=== PATIENT | male | born 1990 | race Caucasian/White ===

== ENCOUNTER 2016-08-22 05:34 | Emergency (ER) | payer OTHER ==
[2016-08-22 05:58] VITALS: BP 133/77
--- NOTE | 2016-08-22 06:10 | DR.GENAD ---
HPI - PCP Primary Care Physician: NFD - Complaint/Symptoms Chief Complaint Doctors Comments: Patient states he woke up sore, shaking with a sore throat and bones aching with stomach cramping this morning. states he had a similar problem a few weeks ago and went to see his doctor and he told him it was a virus but he could not tell him what kind of virus it was. States multiple family members has been sick recently and it seem to have gone through the whole family at one time or another. States his throat is sore all the time rather he is swallowing or not. He denies fever, chills, nausea, vomiting or diarrhea. States his son had strept throat last week. states the pain is 6 of 10. He is having cramping in his stomach but denies hematuria or farhan. States he has taken multiple medicines for pain before leaving home today. He denies cough or SOB. Chief Complaint:: PT C/O FLULIKE SYMPTOMS - Nurses notes reviewed Nurses Notes Review: Yes - Source History Provided: Patient - Mode of Arrival Mode of Arrival: Ambulatory - Timing Onset of Chief Complaint: 07/25/16 Came on: Gradually - Duration Duration: Constant How lon Duration: Days - Location Location: sore throat - Severity Severity: None - Modifying Factors Worsens:: nothing Improves:: nothing PMH - PMH Past Medical History: No Past Surgical History: No - Family History History of Family Medical Conditions: Yes Family Medical History: Cancer - Social History Alcohol Use: Occasionally Do you use any recreational Drugs:: No Lives With: Family Lives Where: Home - infectious screening In the last 2 months have you had wt loss of >10#?: NO Have you had fever, night sweats or hemotysis?: No Have you traveled outside the country in the last 6 months?: No Isolation: Standard ROS - Review of Systems Constitutional: No Symptoms Reported. negative: See HPI, Chills, Diaphoresis, Fever, Malaise, Weakness, Irritable, Fatigue, Loss of Appetite, Other Eyes: No Symptoms Reported ENTM: No Symptoms Reported, Nose Discharge, Nose Congestion, Throat Pain. negative: See HPI, Ear Pain, Ear Discharge, Pulling on Ears, Hearing Loss, Nose Pain, Epistaxis, Mouth Pain, Mouth Swelling, Loose Teeth, Drooling, Throat Swelling, Ear Foreign Body Respiratoy: No Symptoms Reported Cardiovascular: No Symptoms Reported. negative: See HPI, Chest Pain, Edema, Palpitations, Syncope, Cyanosis, Skin Mottling, Other Gastrointestinal/Abdominal: No Symptoms Reported, Abdominal Pain, Nausea. negative: See HPI, Constipation, Diarrhea, Vomiting, Food Intolerance, Other Genitourinary: No Symptoms Reported. negative: See HPI, Discharge, Dysuria, Frequency, Hematuria, Pain, Bleeding, Other Neurological: No Symptoms Reported Musculoskeletal: No Symptoms Reported Integumentary: No Symptoms Reported. negative: See HPI, Change in Color, Change in Hair/Nails, Dryness, Lesions, Lumps, Rash, Itching, Wound, Bruises, Juandice, Other Hematologic/Lymphatic: No Symptoms Reported. negative: See HPI, Anemia, Blood Clots, Easy Bleeding, Easy Bruising, Swollen Glands, Lymphadenopathy, Other Endocrine: No Symptoms Reported Psychiatric: No Symptoms Reported PE - Vital Signs Vitals: Temperature 98.6 F Pulse Rate 100 Respiratory Rate 18 Blood Pressure 133/77 O2 Sat by Pulse Oximetry 98 - General Limitations: No Limitations General Appearance: Alert, In Distress (mild) - Head Head Exam: Normal Inspection, Atraumatic, Normocephalic - Eyes Eye exam: Normal Appearance, PERRL, EOMI. negative: Scleral Icterus, Conjunctival Injection, Nystagmus, Miosis, Mydrasis, Periorbital Swelling, Periorbital Tenderness, Other - ENT ENT Exam: Normal Exam, Normal Oropharynx, Normal External Ear Exam, Mucous Membranes Moist, TM's Normal Bilaterally External Ear Exam: Normal External Inspection TM/Canal Exam: Bilateral Normal Nose Exam: Normal Nose Exam Mouth Exam: Normal Inspection. negative: Drooling, Trismus, Lip Swelling, Tongue Elevation, Tongue Swelling, Laceration, Other Throat Exam: Normal Inspection, Tonsillar Erythema, Tonsillomegaly. negative: Tonsillar Exudate, R Peritonsillar Mass, L Peritonsillar Mass, Muffled Voice, Other - Neck Neck Exam: Normal Inspection, Full ROM, Trachea Midline. negative: Tenderness, Meningismus, Lymphadenopathy, Thyromegaly, Other - Chest Chest Inspection: Normal Inspection, Symmetric Chest Wall Rise. negative: Tenderness, Rash, Abscess, Other - Respiratory Respiratory Exam: Normal Lung Sounds Bilat Respiratory Exam: Bilateral Clear to Auscultation - Cardiovascular Cardiovascular Exam: Regular Rate, Normal Rhythm, Normal Heart Sounds. negative : Bradycardia, Tachycardia, Irregular Rhythm, Systolic Murmur, Diastolic Murmur , Rubs, Gallop, Clicks, JVD, +S1, +S2, +S3, +S4, Other - Abdominal Exam Abdominal Exam: Normal Inspection, Normal Bowel Sounds, Soft. negative: Distention, Tenderness, Guarding, Rebound, Rigidity, Dimnished Bowel Sounds, Hyperactive Bowel Sounds, Hypoactive Bowel Sounds, Organomegaly, Trauma, Incision, Ascites, Mass, Bruit, Pulsatile Mass, Hernia, Other Abdominal Tenderness: negative: RUQ, RLQ, LUQ, LLQ, Epigastrium, Suprapubic, Diffuse, Mild, Moderate, Severe, Other - Extremities Extremities Exam: Normal Inspection, Full ROM, Normal Capillary Refill. negative: Tenderness, Edema, Joint Swelling, Calf Tenderness, Other - Back Back Exam: Normal Inspection, Full ROM. negative: Tenderness, (R) CVA Tenderness, (L) CVA Tenderness, Muscle Spasm, Paraspinal Tenderness, Vertebral Tenderness, Rashes, (R) Sciatic Notch Tenderness, (L) Sciatic Notch Tendern, (R ) Straight Leg Raise, (L) Straight Leg Raise, Other - Neurologic Neurological Exam: Alert, Oriented X3, CN II-XII Intact, Normal Gait, Reflexes Normal - Psychiatric Psychiatric Exam: Normal Affect, Normal Mood. negative: Depressed, Agitated, Anxious, Flat Affect, Manic, Homicidal Ideation, Suicidal Ideation, Other - Skin Skin Exam: Warm, Dry, Intact, Normal Color. negative: Rash, Cyanosis, Diaphoresis, Erythema, Pallor, Mottled, Other ROR - Labs Reviewed Laboratory Results Reviewed?: Yes (all lab results reviewed and discussed with patient) Result Diagrams: 08/22/16 06:18 08/22/16 06:18 Laboratory: WBC 14.7 X10^3/uL (3.6-10.0) H 08/22/16 06:18 RBC 5.21 X10^6/uL (4.7-6.0) 08/22/16 06:18 Hgb 15.5 g/dL (13.5-18.0) 08/22/16 06:18 Hct 44.2 % (42.0-54.0) 08/22/16 06:18 MCV 84.9 fL (80.0-100.0) 08/22/16 06:18 MCH 29.7 pg (27.0-34.0) 08/22/16 06:18 MCHC 35.0 g/dL (33.0-35.0) 08/22/16 06:18 RDW 12.4 % (11.6-16.5) 08/22/16 06:18 Plt Count 286 X10^3/uL (150.0-450.0) 08/22/16 06:18 MPV 7.2 fL (7.4-11.0) L 08/22/16 06:18 Neut % 85.1 % (42.0-75.0) H 08/22/16 06:18 Lymph % 6.5 % (21.0-51.0) L 08/22/16 06:18 [place] % 5.3 % (0.0-13.0) 08/22/16 06:18 Eos % 2.4 % (0.9-2.9) 08/22/16 06:18 Baso % 0.7 % (0.2-1.0) 08/22/16 06:18 Neut # 12.5 x10^3/uL (2.2-4.8) H 08/22/16 06:18 Lymph # 1.0 X10^3/uL (1.3-2.9) L 08/22/16 06:18 [place] # 0.8 x10^3/uL (0.3-0.8) 08/22/16 06:18 Eos # 0.4 x10^3/uL (0.0-0.2) H 08/22/16 06:18 Baso # 0.1 X10^3/uL (0.0-0.1) 08/22/16 06:18 Absolute Nucleated RBC 0.0 /100WBC 08/22/16 06:18 Sodium 139 mmol/L (136-145) 08/22/16 06:18 Corrected Sodium TNP 08/22/16 06:18 Potassium 4.1 mmol/L (3.5-5.1) 08/22/16 06:18 Chloride 103 mmol/L (98-107) 08/22/16 06:18 Carbon Dioxide 26.7 mmol/L (21-32) 08/22/16 06:18 BUN 19 mg/dL (7-18) H 08/22/16 06:18 Creatinine 1.13 mg/dL (0.70-1.30) 08/22/16 06:18 Est GFR (MDRD) Af Amer > 60 (>60) 08/22/16 06:18 Est GFR (MDRD) Non-Af > 60 (>60) 08/22/16 06:18 Glucose 103 mg/dL (65-99) H 08/22/16 06:18 Calcium 8.7 mg/dL (8.5-10.1) 08/22/16 06:18 Corrected Calcium TNP 08/22/16 06:18 Total Bilirubin 1.60 mg/dL (0.2-1.0) H 08/22/16 06:18 AST 17 Units/L (15-37) 08/22/16 06:18 ALT 23 Units/L (12-78) 08/22/16 06:18 Alkaline Phosphatase 52 Units/L (46-116) 08/22/16 06:18 Total Protein 7.6 g/dL (6.4-8.2) 08/22/16 06:18 Albumin 3.9 g/dL (3.4-5.0) 08/22/16 06:18 Globulin 3.7 g/dL (2.5-4.5) 08/22/16 06:18 Albumin/Globulin Ratio 1.1 Ratio (1.1-2.1) 08/22/16 06:18 Streptococcus Screen Positive (NEGATIVE) A 08/22/16 06:21 - Diagnosis Discharge Problem: Streptococcal pharyngitis, Sinusitis, acute - Discharge Plan Disposition: HOME, SELF-CARE Condition: Stable Prescriptions: Amoxicillin & Pot Clavulanate [AUGMENTIN TAB 875 mg/125 mg *] 1 tab PO BID #20 tab Cetirizine HCl [Zyrtec Tab 10 mg] 10 mg PO DAILY #30 tab - Follow ups/Referrals Follow ups/Referrals: NFD,None [Primary Care Provider] - 3 days - Instructions Instructions: Strep Throat, Pharyngitis, Sinusitis, Adult
[2016-08-22 06:25] LABS: BASOPHILS # (AUTO) 0.1 X10^3/uL (0.0-0.1); BASOPHILS % (AUTO) 0.7 % (0.2-1.0); EOSINOPHILS # (AUTO) 0.4 x10^3/uL (0.0-0.2); EOSINOPHILS % (AUTO) 2.4 % (0.9-2.9); HEMATOCRIT 44.2 % (42.0-54.0); HEMOGLOBIN 15.5 g/dL (13.5-18.0); LYMPHOCYTES % (AUTO) 6.5 % (21.0-51.0); MEAN CORPUSCULAR HEMOGLOBIN 29.7 pg (27.0-34.0); MEAN CORPUSCULAR VOLUME 84.9 fL (80.0-100.0); MEAN PLATELET VOLUME 7.2 fL (7.4-11.0); MONOCYTES # (AUTO) 0.8 x10^3/uL (0.3-0.8); MONOCYTES % (AUTO) 5.3 % (0.0-13.0); NEUTROPHILS # (AUTO) 12.5 x10^3/uL (2.2-4.8); NEUTROPHILS % (AUTO) 85.1 % (42.0-75.0); PLATELET COUNT 286 X10^3/uL (150.0-450.0); RED BLOOD COUNT 5.21 X10^6/uL (4.7-6.0); RED CELL DISTRIBUTION WIDTH 12.4 % (11.6-16.5); WHITE BLOOD COUNT 14.7 X10^3/uL (3.6-10.0)
[2016-08-22 06:41] LABS: ALANINE AMINOTRANSFERASE 23 Units/L (12-78); ALBUMIN 3.9 g/dL (3.4-5.0); ALKALINE PHOSPHATASE 52 Units/L (46-116); ASPARTATE AMINO TRANSFERASE 17 Units/L (15-37); BLOOD UREA NITROGEN 19 mg/dL (7-18); CALCIUM 8.7 mg/dL (8.5-10.1); CARBON DIOXIDE 26.7 mmol/L (21-32); CHLORIDE 103 mmol/L (98-107); CREATININE 1.13 mg/dL (0.70-1.30); GLUCOSE 103 mg/dL (65-99); SODIUM 139 mmol/L (136-145); TOTAL PROTEIN 7.6 g/dL (6.4-8.2); eGFR BLACK RACES > 60 (>60); eGFR NON BLACK RACES > 60 (>60)
[2016-08-22] MEDS ORDERED: BICILLIN L-A IM ONE ×2 (06:50→06:52)
== END 2016-08-22 07:11 | disposition home or self-care (01) ==
LOC: ER 05:34
DX: J02.0 Streptococcal pharyngitis (principal); J01.80 Other acute sinusitis
CPT/HCPCS: 36415; 80053; 85025; 87880; 96372; 99282; J0570